=== PATIENT | female | born 1965 | race Caucasian/White ===

== ENCOUNTER 2021-07-15 03:01 | Observation (INO) | payer OTHER, MEDICAID ==
[2021-07-15 04:28] LABS: #Eosinphils 0.1 10x3/uL (0.0-0.5); #Monocytes 0.3 10x3/uL (0.0-1.1); #Neutrophils 2.4 10x3/uL (1.5-8.4); %Basophils 0.8 % (0.0-2.0); %Lymphocytes 20.7 % (18.0-47.0); %Monocytes 7.9 % (0.0-10.0); %Neutrophils 68.3 % (40.0-75.0); Hemoglobin 9.4 g/dL (12.0-15.5); Mean Corpuscular HGB CONC 33.9 g/dL (32.0-36.0); Mean Corpuscular Volume 94.2 fl (81.6-98.3); Mean Platelet Volume 11.3 fl (7.4-10.4); Platelet Count 146 10x3/uL (150-450); RBC Distribution Width 14.4 % (11.5-14.5); Red Blood Cell (RBC) Count 2.94 10x6/uL (3.90-5.03); White Blood Cell (WBC) Count 3.5 10x3/uL (3.5-10.5)
[2021-07-15 04:36] LABS: ALT (SGPT) 8 U/L (8-55); AST (SGOT) 14 U/L (5-34); Albumin 3.9 g/dL (3.5-5.0); Alkaline Phosphatase 178 U/L (40-110); Anion Gap 18 mmol/L (10-20); BUN (Urea Nitrogen) 21 mg/dL (9.8-20.1); Bilirubin, Total 0.8 mg/dL (0.2-1.2); Calc. Creatinine Clearance 0 mL/min (70-130); Calcium 9.5 mg/dL (7.8-10.44); Carbon Dioxide 28 mmol/L (22-29); Chloride 97 mmol/L (98-107); Globulin 2.5 g/dL (2.4-3.5); Glucose 96 mg/dL (70-105); Potassium 4.4 mmol/L (3.5-5.1); Protein, Total 6.4 g/dL (6.0-8.3); Sodium 139 mmol/L (136-145)
[2021-07-15 04:54] LABS: CKMB 0.8 ng/mL (0-6.6)
[2021-07-15] MEDS ORDERED: hydrALAZINE 20 MG/ML VIAL ONE (04:59)
[2021-07-15] MEDS ORDERED: cloNIDine 0.1 MG TAB ONE (06:00)
[2021-07-15] MEDS ORDERED: Nitroglycerin 0.4 MG TAB (25 Tab Bottle) SL PRN (06:05)
[2021-07-15 06:51] VITALS: BMI 34.0
[2021-07-15] MEDS ORDERED: Sevelamer Carbonate 800 MG TAB PO SCH (08:00)
[2021-07-15] MEDS: Carvedilol 12.5 MG TAB PO SCH ×2 (08:26→17:08)
[2021-07-15] MEDS: Apixaban 2.5 MG TAB PO SCH ×2 (08:27→20:10)
[2021-07-15] MEDS: Lisinopril 20 MG TAB PO SCH (08:27)
[2021-07-15] MEDS: Aspirin Chewable 81 MG TAB PO SCH (08:27)
[2021-07-15 08:44] LABS: Cardiac Risk 4.3 (Less than 4.5); Phosphorus 4.2 mg/dL (2.3-4.7)
[2021-07-15 08:52] LABS: Troponin I 0.029 ng/mL (< 0.028)
[2021-07-15 09:43] LABS: Troponin I 0.037 ng/mL (< 0.028)
[2021-07-15] MEDS: Acetaminophen 325 MG TAB PO PRN ×2 (11:47→19:05)
[2021-07-15] MEDS: Sevelamer Carbonate 800 MG TAB PO SCH ×2 (12:17→17:08)
[2021-07-15] MEDS: hydrALAZINE 20 MG/ML VIAL SLOW IVP PRN ×2 (12:18→17:33)
[2021-07-15] MEDS ORDERED: hydrALAZINE 25 MG TAB PO SCH (15:00)
[2021-07-15] MEDS: hydrALAZINE 25 MG TAB PO SCH ×2 (15:25→20:41)
[2021-07-15] MEDS ORDERED: diphenhydrAMINE 25 MG CAP PO PRN (15:45)
[2021-07-15] MEDS ORDERED: Ondansetron ODT 4 MG TAB PO PRN (15:45)
[2021-07-15] MEDS ORDERED: traMADol HCl 50 MG TAB PO PRN (17:26)
[2021-07-15] MEDS ORDERED: Labetalol HCl 100 MG/20 ML VIAL SLOW IVP PRN (17:48)
[2021-07-15 20:02] LABS: SARS-CoV-2 PCR by NAA Not Detected (NotDetected)
[2021-07-15] MEDS: Gabapentin 300 MG CAP PO SCH (20:10)
[2021-07-16] MEDS ORDERED: Heparin 10,000 UNITS/ 10 ML VIAL SLOW IVP PRN (08:25)
[2021-07-16] MEDS ORDERED: NIFEdipine XL 60 MG TAB PO SCH (11:00)
[2021-07-16] MEDS: Lisinopril 20 MG TAB PO SCH (12:24)
[2021-07-16] MEDS: hydrALAZINE 25 MG TAB PO SCH ×3 (12:24→21:25)
[2021-07-16] MEDS: Carvedilol 12.5 MG TAB PO SCH ×2 (12:24→17:22)
[2021-07-16] MEDS: Aspirin Chewable 81 MG TAB PO SCH (12:24)
[2021-07-16] MEDS: Apixaban 2.5 MG TAB PO SCH ×2 (12:25→21:25)
[2021-07-16] MEDS: Sevelamer Carbonate 800 MG TAB PO SCH ×3 (12:25→17:22)
[2021-07-16] MEDS: Gabapentin 300 MG CAP PO SCH (21:24)
[2021-07-17 05:24] LABS: #Eosinphils 0.1 10x3/uL (0.0-0.5); #Monocytes 0.5 10x3/uL (0.0-1.1); #Neutrophils 3.1 10x3/uL (1.5-8.4); %Basophils 0.4 % (0.0-2.0); %Eosinophils 1.8 % (0.0-6.0); %Lymphocytes 28.1 % (18.0-47.0); %Neutrophils 60.3 % (40.0-75.0); Hemoglobin 8.8 g/dL (12.0-15.5); Mean Corpuscular HGB CONC 33.1 g/dL (32.0-36.0); Mean Corpuscular Hemoglobin 31.4 pg (27.0-33.0); Mean Platelet Volume 10.7 fl (7.4-10.4); Platelet Count 155 10x3/uL (150-450); RBC Distribution Width 14.5 % (11.5-14.5); White Blood Cell (WBC) Count 5.1 10x3/uL (3.5-10.5)
[2021-07-17 05:50] LABS: Anion Gap 15 mmol/L (10-20); BUN (Urea Nitrogen) 18 mg/dL (9.8-20.1); Calc. Creatinine Clearance 12 mL/min (70-130); Calcium 9.6 mg/dL (7.8-10.44); Carbon Dioxide 27 mmol/L (22-29); Chloride 95 mmol/L (98-107); Glucose 90 mg/dL (70-105); Potassium 4.4 mmol/L (3.5-5.1); Sodium 133 mmol/L (136-145)
[2021-07-17 08:11] VITALS: TEMP 97.4
[2021-07-17] MEDS: Sevelamer Carbonate 800 MG TAB PO SCH (08:15)
[2021-07-17] MEDS: Lisinopril 20 MG TAB PO SCH (08:15)
[2021-07-17] MEDS: Aspirin Chewable 81 MG TAB PO SCH ×2 (08:15→08:16)
[2021-07-17] MEDS: hydrALAZINE 25 MG TAB PO SCH (08:16)
[2021-07-17] MEDS: Carvedilol 12.5 MG TAB PO SCH (08:16)
[2021-07-17] MEDS: Apixaban 2.5 MG TAB PO SCH (08:16)
[2021-07-17 08:18] VITALS: BP 190/98
[2021-07-17] MEDS ORDERED: NIFEdipine XL 60 MG TAB PO SCH (09:00)
== END 2021-07-17 11:54 | disposition home or self-care (01) ==
LOC: CSHERS 03:01 → CSHTELE 06:40 → INTOOBSV 06:40
PROVIDERS: ADMIT Family Medicine; ATTEND Internal Medicine
DX: I16.0 Hypertensive urgency (principal); R07.9 Chest pain, unspecified; E11.22 Type 2 diabetes mellitus with diabetic chronic kidney disease; I13.0 Hypertensive heart and chronic kidney disease with heart failure and stage 1 through stage 4 chronic kidney disease, or unspecified chronic kidney disease; I50.32 Chronic diastolic (congestive) heart failure; N18.6 End stage renal disease; I25.10 Atherosclerotic heart disease of native coronary artery without angina pectoris; J44.9 Chronic obstructive pulmonary disease, unspecified; Z79.899 Other long term (current) drug therapy; Z95.810 Presence of automatic (implantable) cardiac defibrillator; I69.398 Other sequelae of cerebral infarction; H53.9 Unspecified visual disturbance; Z99.2 Dependence on renal dialysis; I48.0 Paroxysmal atrial fibrillation; E78.5 Hyperlipidemia, unspecified; Z20.822 Contact with and (suspected) exposure to COVID-19
CPT/HCPCS: 71045; 80048; 80053; 80061; 82553; 84100; 84484 ×2; 85025 ×2; 93005; 93306; 96374; 96375; 96376; 99285; G0378 ×4; U0003; U0005; 36415; 90935; 93010; G0257; J0360; J1644; Q0162

== ENCOUNTER 2021-07-29 15:08 | Emergency (ER) | payer OTHER, MEDICAID ==
[2021-07-29 15:47] LABS: #Eosinphils 0.1 10x3/uL (0.0-0.5); #Monocytes 0.5 10x3/uL (0.0-1.1); %Basophils 0.7 % (0.0-2.0); %Eosinophils 1.5 % (0.0-6.0); %Lymphocytes 21.2 % (18.0-47.0); %Monocytes 8.1 % (0.0-10.0); Hemoglobin 9.2 g/dL (12.0-15.5); Mean Corpuscular HGB CONC 33.1 g/dL (32.0-36.0); Mean Corpuscular Hemoglobin 31.5 pg (27.0-33.0); Mean Corpuscular Volume 95.2 fl (81.6-98.3); Mean Platelet Volume 10.6 fl (7.4-10.4); Platelet Count 224 10x3/uL (150-450); RBC Distribution Width 13.5 % (11.5-14.5); Red Blood Cell (RBC) Count 2.92 10x6/uL (3.90-5.03); White Blood Cell (WBC) Count 5.8 10x3/uL (3.5-10.5)
[2021-07-29 16:16] LABS: ALT (SGPT) 8 U/L (8-55); AST (SGOT) 14 U/L (5-34); Alkaline Phosphatase 197 U/L (40-110); Anion Gap 20 mmol/L (10-20); BUN (Urea Nitrogen) 27 mg/dL (9.8-20.1); Bilirubin, Total 0.5 mg/dL (0.2-1.2); Calc. Creatinine Clearance 0 mL/min (70-130); Calcium 8.2 mg/dL (7.8-10.44); Carbon Dioxide 25 mmol/L (22-29); Chloride 98 mmol/L (98-107); Globulin 2.8 g/dL (2.4-3.5); Glucose 97 mg/dL (70-105); Potassium 4.6 mmol/L (3.5-5.1); Protein, Total 6.8 g/dL (6.0-8.3); Sodium 138 mmol/L (136-145)
[2021-07-29 16:39] LABS: CKMB 0.7 ng/mL (0-6.6)
== END 2021-07-29 18:06 | disposition home or self-care (01) ==
LOC: CSHERS 15:08
DX: I13.2 Hypertensive heart and chronic kidney disease with heart failure and with stage 5 chronic kidney disease, or end stage renal disease (principal); E11.22 Type 2 diabetes mellitus with diabetic chronic kidney disease; N18.6 End stage renal disease; I50.9 Heart failure, unspecified; I48.91 Unspecified atrial fibrillation; E78.5 Hyperlipidemia, unspecified; E78.00 Pure hypercholesterolemia, unspecified; Z87.891 Personal history of nicotine dependence; Z99.2 Dependence on renal dialysis
CPT/HCPCS: 71045; 80053; 82553; 84484; 85025; 93005

== ENCOUNTER 2021-08-05 16:16 | Emergency (ER) | payer OTHER, MEDICAID ==
[2021-08-05 17:21] LABS: #Eosinphils 0.3 10x3/uL (0.0-0.5); #Monocytes 0.3 10x3/uL (0.0-1.1); #Neutrophils 2.6 10x3/uL (1.5-8.4); %Basophils 0.7 % (0.0-2.0); %Eosinophils 8.1 % (0.0-6.0); %Lymphocytes 21.6 % (18.0-47.0); %Monocytes 6.4 % (0.0-10.0); %Neutrophils 62.7 % (40.0-75.0); Mean Corpuscular HGB CONC 33.5 g/dL (32.0-36.0); Mean Corpuscular Hemoglobin 31.4 pg (27.0-33.0); Mean Corpuscular Volume 93.7 fl (81.6-98.3); Mean Platelet Volume 10.3 fl (7.4-10.4); Platelet Count 149 10x3/uL (150-450); RBC Distribution Width 13.5 % (11.5-14.5); Red Blood Cell (RBC) Count 2.87 10x6/uL (3.90-5.03); White Blood Cell (WBC) Count 4.2 10x3/uL (3.5-10.5)
[2021-08-05 17:34] LABS: ALT (SGPT) 13 U/L (8-55); AST (SGOT) 19 U/L (5-34); Alkaline Phosphatase 191 U/L (40-110); Anion Gap 20 mmol/L (10-20); BUN (Urea Nitrogen) 45 mg/dL (9.8-20.1); Bilirubin, Total 0.5 mg/dL (0.2-1.2); Calc. Creatinine Clearance 0 mL/min (70-130); Calcium 7.8 mg/dL (7.8-10.44); Carbon Dioxide 26 mmol/L (22-29); Chloride 99 mmol/L (98-107); Globulin 3.1 g/dL (2.4-3.5); Glucose 94 mg/dL (70-105); Protein, Total 7.1 g/dL (6.0-8.3); Sodium 140 mmol/L (136-145)
== END 2021-08-05 17:55 | disposition home or self-care (01) ==
LOC: CSHERS 16:16
DX: R53.81 Other malaise (principal); N18.6 End stage renal disease; Z99.2 Dependence on renal dialysis; Z79.899 Other long term (current) drug therapy; Z79.01 Long term (current) use of anticoagulants; I48.91 Unspecified atrial fibrillation; I50.9 Heart failure, unspecified; E11.9 Type 2 diabetes mellitus without complications; E78.5 Hyperlipidemia, unspecified; E78.00 Pure hypercholesterolemia, unspecified; I11.0 Hypertensive heart disease with heart failure; Z87.891 Personal history of nicotine dependence
CPT/HCPCS: 71045; 80053; 85025

== ENCOUNTER 2022-03-17 14:26 | Inpatient (IN) | payer OTHER ==
[2022-03-17 15:11] LABS: #Eosinphils 0.1 10x3/uL (0.0-0.5); #Monocytes 0.4 10x3/uL (0.0-1.1); #Neutrophils 2.6 10x3/uL (1.5-8.4); %Basophils 0.7 % (0.0-2.0); %Eosinophils 1.7 % (0.0-6.0); %Lymphocytes 23.8 % (18.0-47.0); %Monocytes 8.9 % (0.0-10.0); %Neutrophils 64.7 % (40.0-75.0); Hemoglobin 10.7 g/dL (12.0-15.5); Mean Corpuscular HGB CONC 31.3 g/dL (32.0-36.0); Mean Corpuscular Hemoglobin 28.4 pg (27.0-33.0); Mean Corpuscular Volume 90.7 fl (81.6-98.3); Mean Platelet Volume 11.8 fl (7.4-10.4); Platelet Count 207 10x3/uL (150-450); RBC Distribution Width 15.7 % (11.5-14.5); Red Blood Cell (RBC) Count 3.77 10x6/uL (3.90-5.03)
[2022-03-17 15:26] LABS: ALT (SGPT) 8 U/L (8-55); AST (SGOT) 20 U/L (5-34); Albumin 3.5 g/dL (3.5-5.0); Alkaline Phosphatase 56 U/L (40-110); Anion Gap 17 mmol/L (10-20); BUN (Urea Nitrogen) 20 mg/dL (9.8-20.1); Bilirubin, Total 0.5 mg/dL (0.2-1.2); Calc. Creatinine Clearance 0 mL/min (70-130); Calcium 10.2 mg/dL (7.8-10.44); Carbon Dioxide 28 mmol/L (22-29); Chloride 99 mmol/L (98-107); Estimated GFR 5; Glucose 99 mg/dL (70-105); Lipase 40 U/L (8-78); Potassium 4.5 mmol/L (3.5-5.1); Protein, Total 6.5 g/dL (6.0-8.3); Sodium 139 mmol/L (136-145)
[2022-03-17] MEDS ORDERED: Ondansetron ODT 4 MG TAB PO PRN (17:00)
[2022-03-17] MEDS ORDERED: Senokot S 8.6-50 MG TAB PO PRN (17:00)
[2022-03-17] MEDS ORDERED: Acetaminophen 325 MG TAB PO PRN (17:00)
[2022-03-17] MEDS ORDERED: Ondansetron PF 4 MG/2 ML Vial IVP PRN (17:00)
[2022-03-17] MEDS ORDERED: Ipratropium/Albuterol 3 ML NEB NEB PRN (17:30)
[2022-03-17 20:34] VITALS: BMI 34.9
[2022-03-17] MEDS ORDERED: hydrALAZINE 25 MG TAB PO SCH (21:00)
[2022-03-17] MEDS ORDERED: Carvedilol 12.5 MG TAB PO SCH (21:00)
[2022-03-17] MEDS ORDERED: Lisinopril 20 MG TAB PO SCH (21:00)
[2022-03-17] MEDS: Gabapentin 300 MG CAP PO SCH (21:50)
[2022-03-17] MEDS: Apixaban 2.5 MG TAB PO SCH (22:07)
[2022-03-18 00:11] LABS: SARS-CoV-2 NAA Rapid Test DETECTED (NotDetected)
[2022-03-18 05:32] LABS: #Eosinphils 0.1 10x3/uL (0.0-0.5); #Monocytes 0.3 10x3/uL (0.0-1.1); #Neutrophils 2.6 10x3/uL (1.5-8.4); %Basophils 0.5 % (0.0-2.0); %Eosinophils 1.6 % (0.0-6.0); %Lymphocytes 23.1 % (18.0-47.0); %Monocytes 8.5 % (0.0-10.0); Hemoglobin 10.7 g/dL (12.0-15.5); Mean Corpuscular HGB CONC 31.8 g/dL (32.0-36.0); Mean Corpuscular Hemoglobin 28.8 pg (27.0-33.0); Mean Corpuscular Volume 90.8 fl (81.6-98.3); Mean Platelet Volume 11.5 fl (7.4-10.4); Platelet Count 196 10x3/uL (150-450); RBC Distribution Width 15.9 % (11.5-14.5); Red Blood Cell (RBC) Count 3.71 10x6/uL (3.90-5.03); White Blood Cell (WBC) Count 3.9 10x3/uL (3.5-10.5)
[2022-03-18 05:40] LABS: Anion Gap 16 mmol/L (10-20); BUN (Urea Nitrogen) 23 mg/dL (9.8-20.1); Calc. Creatinine Clearance 10 mL/min (70-130); Calcium 9.7 mg/dL (7.8-10.44); Carbon Dioxide 26 mmol/L (22-29); Chloride 101 mmol/L (98-107); Estimated GFR 5; Glucose 90 mg/dL (70-105); Potassium 4.3 mmol/L (3.5-5.1); Sodium 139 mmol/L (136-145)
[2022-03-18] MEDS ORDERED: Albuterol 200 PUFF (6.7GM INHALER) INH PRN (07:34)
[2022-03-18] MEDS ORDERED: Lidocaine 1% PF 5 ML VIAL ONE (08:52)
[2022-03-18] MEDS ORDERED: Sodium Bicarbonate 2.5 MEQ/5 ML VIAL ONE (08:52)
[2022-03-18] MEDS ORDERED: NIFEdipine XL 60 MG TAB PO SCH (09:00)
[2022-03-18] MEDS: Sevelamer Carbonate 800 MG TAB PO SCH ×3 (09:40→22:10)
[2022-03-18] MEDS: Carvedilol 12.5 MG TAB PO SCH ×2 (09:41→22:10)
[2022-03-18] MEDS: Aspirin 81 mg Enteric Coated Tablet PO SCH (09:41)
[2022-03-18] MEDS: Ascorbic Acid 500 mg Chewable Tablet PO SCH (09:41)
[2022-03-18] MEDS: Apixaban 2.5 MG TAB PO SCH ×2 (09:41→22:09)
[2022-03-18] MEDS: NIFEdipine XL 60 MG TAB PO SCH (09:41)
[2022-03-18] MEDS: Zinc Sulfate 220 MG CAP PO SCH (09:42)
[2022-03-18] MEDS: hydrALAZINE 25 MG TAB PO SCH ×3 (09:44→22:10)
[2022-03-18 11:58] LABS: BF Color Yellow; Body Fluid Source Peritoneal Fluid; Clarity Hazy (Clear); Tube # EDTA
[2022-03-18 12:56] LABS: BF Segmented Neutrophils 26 %; Cell Count Non Hematic 57 %; Lymphocytes 17 %
[2022-03-18 14:43] LABS: Fluid, Amylase 15 U/L (Not Available); Fluid, Glucose 93 mg/dL (Not Available)
[2022-03-18 15:33] LABS: HBSAg Index 0.18 S/CO (0-0.99); Hep B Surf Ag Non-Reactive S/CO (NonReactive)
[2022-03-18] MEDS ORDERED: Heparin 10,000 UNITS/ 10 ML VIAL SLOW IVP PRN (17:43)
[2022-03-18] MEDS: Gabapentin 300 MG CAP PO SCH (22:09)
[2022-03-18] MEDS: Lisinopril 20 MG TAB PO SCH (22:11)
[2022-03-19 04:02] LABS: #Eosinphils 0.1 10x3/uL (0.0-0.5); #Monocytes 0.3 10x3/uL (0.0-1.1); #Neutrophils 1.7 10x3/uL (1.5-8.4); %Basophils 0.7 % (0.0-2.0); %Lymphocytes 30.9 % (18.0-47.0); %Monocytes 8.9 % (0.0-10.0); %Neutrophils 57.2 % (40.0-75.0); Hemoglobin 10.1 g/dL (12.0-15.5); Mean Corpuscular HGB CONC 31.1 g/dL (32.0-36.0); Mean Corpuscular Hemoglobin 28.5 pg (27.0-33.0); Mean Corpuscular Volume 91.8 fl (81.6-98.3); Platelet Count 161 10x3/uL (150-450); RBC Distribution Width 15.9 % (11.5-14.5); Red Blood Cell (RBC) Count 3.54 10x6/uL (3.90-5.03)
[2022-03-19 04:18] LABS: ALT (SGPT) Less than 6 U/L (8-55); AST (SGOT) 12 U/L (5-34); Alkaline Phosphatase 48 U/L (40-110); Anion Gap 10 mmol/L (10-20); BUN (Urea Nitrogen) 11 mg/dL (9.8-20.1); Bilirubin, Total 0.4 mg/dL (0.2-1.2); Calc. Creatinine Clearance 15 mL/min (70-130); Calcium 9.3 mg/dL (7.8-10.44); Carbon Dioxide 29 mmol/L (22-29); Chloride 99 mmol/L (98-107); Estimated GFR 9; Globulin 2.5 g/dL (2.4-3.5); Glucose 87 mg/dL (70-105); Potassium 4.2 mmol/L (3.5-5.1); Protein, Total 5.5 g/dL (6.0-8.3); Sodium 134 mmol/L (136-145)
[2022-03-19] MEDS ORDERED: Loperamide HCl 2 MG CAP PO PRN (08:34)
[2022-03-19] MEDS: Sevelamer Carbonate 800 MG TAB PO SCH ×3 (09:35→17:48)
[2022-03-19] MEDS: Carvedilol 12.5 MG TAB PO SCH ×2 (10:10→21:33)
[2022-03-19] MEDS: Ascorbic Acid 500 mg Chewable Tablet PO SCH (10:10)
[2022-03-19] MEDS: Aspirin 81 mg Enteric Coated Tablet PO SCH (10:10)
[2022-03-19] MEDS: Apixaban 2.5 MG TAB PO SCH ×2 (10:10→21:33)
[2022-03-19] MEDS: hydrALAZINE 25 MG TAB PO SCH ×3 (10:10→21:33)
[2022-03-19] MEDS: NIFEdipine XL 60 MG TAB PO SCH (10:11)
[2022-03-19] MEDS: Zinc Sulfate 220 MG CAP PO SCH (10:11)
[2022-03-19] MEDS: Benzonatate 100 MG CAP PO PRN (16:01)
[2022-03-19] MEDS: Gabapentin 300 MG CAP PO SCH (21:33)
[2022-03-19] MEDS: Lisinopril 20 MG TAB PO SCH (21:34)
[2022-03-20] MEDS: Zinc Sulfate 220 MG CAP PO SCH (08:31)
[2022-03-20] MEDS: Sevelamer Carbonate 800 MG TAB PO SCH ×3 (08:31→17:25)
[2022-03-20] MEDS: Ascorbic Acid 500 mg Chewable Tablet PO SCH (08:31)
[2022-03-20] MEDS: Apixaban 2.5 MG TAB PO SCH ×2 (08:31→20:41)
[2022-03-20] MEDS: NIFEdipine XL 60 MG TAB PO SCH (08:31)
[2022-03-20] MEDS: Carvedilol 12.5 MG TAB PO SCH ×2 (08:31→20:41)
[2022-03-20] MEDS: Aspirin 81 mg Enteric Coated Tablet PO SCH (08:32)
[2022-03-20] MEDS: hydrALAZINE 25 MG TAB PO SCH ×3 (08:32→14:44)
[2022-03-20 11:28] LABS: Prothrombin Time 11.2 sec (9.5-12.1)
[2022-03-20 15:41] LABS: Hep B Core Total Ab Non-Reactive (NonReactive); Hep B Core Total Index 0.13 S/CO (0-0.79)
[2022-03-20 16:11] LABS: Hep B Surf AB Reactive (NonReactive)
[2022-03-20 16:12] LABS: HBSAB Concentration 25.21 mIU/mL
[2022-03-20] MEDS: Gabapentin 300 MG CAP PO SCH (20:40)
[2022-03-21] MEDS: hydrALAZINE 25 MG TAB PO SCH ×3 (04:52→16:03)
[2022-03-21] MEDS: Lisinopril 20 MG TAB PO SCH (04:53)
[2022-03-21] MEDS: Apixaban 2.5 MG TAB PO SCH ×2 (09:00→21:15)
[2022-03-21] MEDS: Ascorbic Acid 500 mg Chewable Tablet PO SCH (09:00)
[2022-03-21] MEDS: Zinc Sulfate 220 MG CAP PO SCH (09:00)
[2022-03-21] MEDS: Aspirin 81 mg Enteric Coated Tablet PO SCH (09:00)
[2022-03-21] MEDS: NIFEdipine XL 60 MG TAB PO SCH (09:00)
[2022-03-21] MEDS: Carvedilol 12.5 MG TAB PO SCH ×2 (09:00→21:16)
[2022-03-21] MEDS: Sevelamer Carbonate 800 MG TAB PO SCH ×3 (09:00→16:04)
[2022-03-21] MEDS: Gabapentin 300 MG CAP PO SCH (21:15)
[2022-03-22 04:01] LABS: #Monocytes 0.3 10x3/uL (0.0-1.1); #Neutrophils 2.6 10x3/uL (1.5-8.4); %Basophils 0.7 % (0.0-2.0); %Lymphocytes 27.3 % (18.0-47.0); %Monocytes 7.1 % (0.0-10.0); %Neutrophils 63.7 % (40.0-75.0); Hemoglobin 10.7 g/dL (12.0-15.5); Mean Corpuscular HGB CONC 31.6 g/dL (32.0-36.0); Mean Corpuscular Hemoglobin 28.5 pg (27.0-33.0); Mean Corpuscular Volume 90.2 fl (81.6-98.3); Platelet Count 159 10x3/uL (150-450); RBC Distribution Width 15.1 % (11.5-14.5); Red Blood Cell (RBC) Count 3.76 10x6/uL (3.90-5.03); White Blood Cell (WBC) Count 4.1 10x3/uL (3.5-10.5)
[2022-03-22 04:03] LABS: Anion Gap 16 mmol/L (10-20); BUN (Urea Nitrogen) 17 mg/dL (9.8-20.1); Calc. Creatinine Clearance 14 mL/min (70-130); Calcium 9.7 mg/dL (7.8-10.44); Carbon Dioxide 25 mmol/L (22-29); Chloride 98 mmol/L (98-107); Estimated GFR 8; Glucose 78 mg/dL (70-105); Potassium 4.9 mmol/L (3.5-5.1); Sodium 134 mmol/L (136-145)
[2022-03-22] MEDS: hydrALAZINE 25 MG TAB PO SCH ×4 (05:33→22:12)
[2022-03-22] MEDS: Lisinopril 20 MG TAB PO SCH ×2 (05:34→22:12)
[2022-03-22] MEDS: Apixaban 2.5 MG TAB PO SCH ×2 (08:32→21:49)
[2022-03-22] MEDS: NIFEdipine XL 60 MG TAB PO SCH (08:32)
[2022-03-22] MEDS: Carvedilol 12.5 MG TAB PO SCH ×2 (08:32→21:50)
[2022-03-22] MEDS: Aspirin 81 mg Enteric Coated Tablet PO SCH (08:32)
[2022-03-22] MEDS: Sevelamer Carbonate 800 MG TAB PO SCH ×3 (08:32→17:43)
[2022-03-22] MEDS: Ascorbic Acid 500 mg Chewable Tablet PO SCH (08:33)
[2022-03-22] MEDS: Zinc Sulfate 220 MG CAP PO SCH (08:33)
[2022-03-22] MEDS: cefTRIAXone\\ROCEPHIN 1 GM in Sodium Chloride 0.9% 100 ML IVPB SCH (17:42)
[2022-03-22] MEDS: Gabapentin 300 MG CAP PO SCH (21:49)
[2022-03-22] MEDS: Benzonatate 100 MG CAP PO PRN (22:15)
[2022-03-23 03:41] LABS: #Eosinphils 0.1 10x3/uL (0.0-0.5); #Monocytes 0.3 10x3/uL (0.0-1.1); #Neutrophils 2.1 10x3/uL (1.5-8.4); %Basophils 0.8 % (0.0-2.0); %Eosinophils 1.7 % (0.0-6.0); %Lymphocytes 30.1 % (18.0-47.0); %Monocytes 8.1 % (0.0-10.0); Hemoglobin 10.1 g/dL (12.0-15.5); Mean Corpuscular HGB CONC 31.8 g/dL (32.0-36.0); Mean Corpuscular Hemoglobin 28.8 pg (27.0-33.0); Mean Corpuscular Volume 90.6 fl (81.6-98.3); Mean Platelet Volume 11.7 fl (7.4-10.4); Platelet Count 120 10x3/uL (150-450); RBC Distribution Width 14.9 % (11.5-14.5); Red Blood Cell (RBC) Count 3.51 10x6/uL (3.90-5.03); White Blood Cell (WBC) Count 3.6 10x3/uL (3.5-10.5)
[2022-03-23 03:58] LABS: Anion Gap 14 mmol/L (10-20); BUN (Urea Nitrogen) 26 mg/dL (9.8-20.1); Calc. Creatinine Clearance 11 mL/min (70-130); Calcium 9.6 mg/dL (7.8-10.44); Carbon Dioxide 25 mmol/L (22-29); Chloride 97 mmol/L (98-107); Estimated GFR 6; Glucose 82 mg/dL (70-105); Potassium 5.8 mmol/L (3.5-5.1); Sodium 130 mmol/L (136-145)
[2022-03-23] MEDS: Sevelamer Carbonate 800 MG TAB PO SCH ×3 (10:01→19:04)
[2022-03-23] MEDS: hydrALAZINE 25 MG TAB PO SCH ×3 (10:02→20:19)
[2022-03-23] MEDS: Zinc Sulfate 220 MG CAP PO SCH (10:03)
[2022-03-23] MEDS: NIFEdipine XL 60 MG TAB PO SCH (10:03)
[2022-03-23] MEDS: Ascorbic Acid 500 mg Chewable Tablet PO SCH (10:03)
[2022-03-23] MEDS: Carvedilol 12.5 MG TAB PO SCH ×2 (10:03→20:03)
[2022-03-23] MEDS: Aspirin 81 mg Enteric Coated Tablet PO SCH (10:03)
[2022-03-23] MEDS: Apixaban 2.5 MG TAB PO SCH ×2 (10:03→20:03)
[2022-03-23] MEDS: cefTRIAXone\\ROCEPHIN 1 GM in Sodium Chloride 0.9% 100 ML IVPB SCH (19:09)
[2022-03-23] MEDS: Gabapentin 300 MG CAP PO SCH (20:02)
[2022-03-23] MEDS: Lisinopril 20 MG TAB PO SCH (20:03)
[2022-03-23] MEDS: Benzonatate 100 MG CAP PO PRN (20:05)
[2022-03-24] MEDS: Sevelamer Carbonate 800 MG TAB PO SCH ×3 (08:42→17:46)
[2022-03-24] MEDS: Ascorbic Acid 500 mg Chewable Tablet PO SCH (08:43)
[2022-03-24] MEDS: Zinc Sulfate 220 MG CAP PO SCH (08:43)
[2022-03-24] MEDS: Aspirin 81 mg Enteric Coated Tablet PO SCH (08:43)
[2022-03-24] MEDS: Carvedilol 12.5 MG TAB PO SCH ×2 (08:43→21:06)
[2022-03-24] MEDS: Apixaban 2.5 MG TAB PO SCH ×2 (08:43→21:07)
[2022-03-24] MEDS: NIFEdipine XL 60 MG TAB PO SCH (08:43)
[2022-03-24] MEDS: hydrALAZINE 25 MG TAB PO SCH ×3 (08:43→21:08)
[2022-03-24 14:06] LABS: SARS-CoV-2 NAA Rapid Test DETECTED (NotDetected)
[2022-03-24 14:37] LABS: Anion Gap 13 mmol/L (10-20); BUN (Urea Nitrogen) 22 mg/dL (9.8-20.1); Calc. Creatinine Clearance 13 mL/min (70-130); Calcium 10.4 mg/dL (7.8-10.44); Carbon Dioxide 28 mmol/L (22-29); Chloride 98 mmol/L (98-107); Estimated GFR 8; Glucose 100 mg/dL (70-105); Potassium 5.3 mmol/L (3.5-5.1); Sodium 134 mmol/L (136-145)
[2022-03-24] MEDS: cefTRIAXone\\ROCEPHIN 1 GM in Sodium Chloride 0.9% 100 ML IVPB SCH (16:04)
[2022-03-24] MEDS: Gabapentin 300 MG CAP PO SCH (21:07)
[2022-03-24] MEDS: Lisinopril 20 MG TAB PO SCH (21:07)
[2022-03-24] MEDS: Benzonatate 100 MG CAP PO PRN (21:07)
[2022-03-25] MEDS ORDERED: Loperamide HCl 2 MG CAP PO SCH (01:15)
[2022-03-25 08:06] LABS: SARS-CoV-2 NAA Rapid Test DETECTED (NotDetected)
[2022-03-25] MEDS: NIFEdipine XL 60 MG TAB PO SCH (08:40)
[2022-03-25] MEDS: Sevelamer Carbonate 800 MG TAB PO SCH ×2 (08:40→12:11)
[2022-03-25] MEDS: Apixaban 2.5 MG TAB PO SCH (08:40)
[2022-03-25] MEDS: Aspirin 81 mg Enteric Coated Tablet PO SCH (08:40)
[2022-03-25] MEDS: Carvedilol 12.5 MG TAB PO SCH (08:41)
[2022-03-25] MEDS: hydrALAZINE 25 MG TAB PO SCH ×2 (08:41→15:07)
[2022-03-25] MEDS: Ascorbic Acid 500 mg Chewable Tablet PO SCH (08:41)
[2022-03-25] MEDS: Zinc Sulfate 220 MG CAP PO SCH (08:41)
[2022-03-25 14:16] VITALS: BP 111/45; TEMP 97.8
== END 2022-03-25 18:40 | disposition home or self-care (01) | DRG 947 ==
LOC: CSHERS 14:26 → CSHTELE 16:51 → OBSVTOIN 03-19 16:20
PROVIDERS: ADMIT Student in an Organized Health Care Education/Training Program; ATTEND Hospitalist
PROC: 8E0ZXY6 Isolation (ICD-10-PCS; principal; 2022-03-18)
PROC: 0W9G3ZZ Drainage of Peritoneal Cavity, Percutaneous Approach (ICD-10-PCS; 2022-03-18)
PROC: 5A1D70Z Performance of Urinary Filtration, Intermittent, Less than 6 Hours Per Day (ICD-10-PCS; 2022-03-18)
DX: R18.8 Other ascites (principal); N18.6 End stage renal disease; U07.1 COVID-19; I50.32 Chronic diastolic (congestive) heart failure; I48.20 Chronic atrial fibrillation, unspecified; I13.2 Hypertensive heart and chronic kidney disease with heart failure and with stage 5 chronic kidney disease, or end stage renal disease; I25.10 Atherosclerotic heart disease of native coronary artery without angina pectoris; D63.1 Anemia in chronic kidney disease; E78.5 Hyperlipidemia, unspecified; E11.22 Type 2 diabetes mellitus with diabetic chronic kidney disease; E66.9 Obesity, unspecified; Z68.33 Body mass index [BMI] 33.0-33.9, adult; Z99.2 Dependence on renal dialysis; Z79.01 Long term (current) use of anticoagulants; Z86.73 Personal history of transient ischemic attack (TIA), and cerebral infarction without residual deficits; Z88.8 Allergy status to other drugs, medicaments and biological substances; Z91.041 Radiographic dye allergy status; Z79.899 Other long term (current) drug therapy; Z90.49 Acquired absence of other specified parts of digestive tract; I25.2 Old myocardial infarction; Z90.710 Acquired absence of both cervix and uterus; Z95.810 Presence of automatic (implantable) cardiac defibrillator
CPT/HCPCS: 36415; 36416; 49083; 71045; 74176; 80048; 80053; 82042; 82150; 82945; 83615; 83690; 84155; 85025; 85610; 86704; 86706; 87070; 87205; 87340; 88112; 88305; 89051; 90935; 94760; G0257; G0378; J0696; J1644; J3490; U0002

== ENCOUNTER 2022-08-22 13:12 | Observation (INO) | payer OTHER ==
[2022-08-22 14:00] LABS: #Eosinphils 0.1 10x3/uL (0.0-0.5); #Monocytes 0.4 10x3/uL (0.0-1.1); #Neutrophils 2.7 10x3/uL (1.5-8.4); %Basophils 0.5 % (0.0-2.0); %Eosinophils 2.8 % (0.0-6.0); %Lymphocytes 17.7 % (18.0-47.0); %Monocytes 10.1 % (0.0-10.0); %Neutrophils 68.6 % (40.0-75.0); Hemoglobin 10.4 g/dL (12.0-15.5); Mean Corpuscular HGB CONC 31.4 g/dL (32.0-36.0); Mean Corpuscular Hemoglobin 27.2 pg (27.0-33.0); Mean Corpuscular Volume 86.6 fl (81.6-98.3); Mean Platelet Volume 11.4 fl (7.4-10.4); Platelet Count 179 10x3/uL (150-450); RBC Distribution Width 13.9 % (11.5-14.5); Red Blood Cell (RBC) Count 3.82 10x6/uL (3.90-5.03)
[2022-08-22] MEDS ORDERED: Lidocaine 2% Viscous Solution 10 ML, Aluminum & Magnesium Hydroxide 30 ML SSW SCH (14:00)
[2022-08-22] MEDS ORDERED: Nitroglycerin 2% Ointment 1 INCH/1 GM Packet ONE (14:05)
[2022-08-22 14:13] LABS: ALT (SGPT) 9 U/L (8-55); AST (SGOT) 17 U/L (5-34); Albumin 3.9 g/dL (3.5-5.0); Alkaline Phosphatase 59 U/L (40-110); Anion Gap 13 mmol/L (10-20); BUN (Urea Nitrogen) 19 mg/dL (9.8-20.1); Bilirubin, Total 0.6 mg/dL (0.2-1.2); Calc. Creatinine Clearance 0 mL/min (70-130); Calcium 10.2 mg/dL (7.8-10.44); Carbon Dioxide 28 mmol/L (22-29); Chloride 98 mmol/L (98-107); Estimated GFR 9; Globulin 2.9 g/dL (2.4-3.5); Glucose 116 mg/dL (70-105); Lipase 24 U/L (8-78); Potassium 3.5 mmol/L (3.5-5.1); Protein, Total 6.8 g/dL (6.0-8.3); Sodium 135 mmol/L (136-145)
[2022-08-22 14:37] LABS: CKMB 0.7 ng/mL (0-6.6)
[2022-08-22] MEDS ORDERED: Ondansetron PF 4 MG/2 ML Vial IVP PRN (15:53)
[2022-08-22] MEDS ORDERED: Calcium Carbonate 500 MG ChewTAB PO PRN (15:53)
[2022-08-22] MEDS ORDERED: Acetaminophen 325 MG TAB PO PRN (15:53)
[2022-08-22] MEDS ORDERED: Senokot S 8.6-50 MG TAB PO PRN (15:53)
[2022-08-22 16:26] VITALS: BMI 29.1
[2022-08-22] MEDS ORDERED: Sevelamer Carbonate 800 MG TAB PO SCH (17:00)
[2022-08-22 18:10] LABS: Troponin I 0.038 ng/mL (< 0.028)
[2022-08-22 20:35] LABS: Troponin I 0.033 ng/mL (< 0.028)
[2022-08-22] MEDS ORDERED: Gabapentin 300 MG CAP PO SCH (21:00)
[2022-08-22] MEDS: Carvedilol 12.5 MG TAB PO SCH (21:28)
[2022-08-22] MEDS: Apixaban 2.5 MG TAB PO SCH (21:28)
[2022-08-22] MEDS: hydrALAZINE 25 MG TAB PO SCH (21:29)
[2022-08-23 04:29] LABS: #Eosinphils 0.1 10x3/uL (0.0-0.5); #Monocytes 0.4 10x3/uL (0.0-1.1); #Neutrophils 2.3 10x3/uL (1.5-8.4); %Basophils 0.8 % (0.0-2.0); %Eosinophils 2.6 % (0.0-6.0); %Lymphocytes 28.6 % (18.0-47.0); %Monocytes 8.9 % (0.0-10.0); %Neutrophils 58.8 % (40.0-75.0); Hemoglobin 9.9 g/dL (12.0-15.5); Mean Corpuscular HGB CONC 31.1 g/dL (32.0-36.0); Mean Corpuscular Hemoglobin 27.3 pg (27.0-33.0); Mean Corpuscular Volume 87.6 fl (81.6-98.3); Mean Platelet Volume 12.3 fl (7.4-10.4); Platelet Count 148 10x3/uL (150-450); RBC Distribution Width 13.9 % (11.5-14.5); Red Blood Cell (RBC) Count 3.63 10x6/uL (3.90-5.03); White Blood Cell (WBC) Count 3.9 10x3/uL (3.5-10.5)
[2022-08-23 04:39] LABS: ALT (SGPT) 8 U/L (8-55); AST (SGOT) 15 U/L (5-34); Albumin 3.7 g/dL (3.5-5.0); Alkaline Phosphatase 57 U/L (40-110); Anion Gap 17 mmol/L (10-20); BUN (Urea Nitrogen) 25 mg/dL (9.8-20.1); Bilirubin, Total 0.5 mg/dL (0.2-1.2); Calc. Creatinine Clearance 11 mL/min (70-130); Calcium 10.7 mg/dL (7.8-10.44); Carbon Dioxide 25 mmol/L (22-29); Cardiac Risk 4.7 (Less than 4.5); Chloride 98 mmol/L (98-107); Cholesterol 127 mg/dl (< 200 Desired); Estimated GFR 7; Globulin 2.8 g/dL (2.4-3.5); Glucose 97 mg/dL (70-105); HDL Cholesterol 27 mg/dL (>60 Neg Risk); LDL Cholesterol, Calculated 72 mg/dL; Protein, Total 6.5 g/dL (6.0-8.3); Sodium 136 mmol/L (136-145); Triglycerides 138 mg/dL (Less than 150)
[2022-08-23] MEDS: Apixaban 2.5 MG TAB PO SCH (08:56)
[2022-08-23] MEDS: hydrALAZINE 25 MG TAB PO SCH (08:57)
[2022-08-23] MEDS: Carvedilol 12.5 MG TAB PO SCH (08:58)
[2022-08-23] MEDS ORDERED: NIFEdipine XL 30 MG TAB PO SCH (09:00)
[2022-08-23] MEDS ORDERED: Lisinopril 20 MG TAB PO SCH (09:00)
[2022-08-23] MEDS ORDERED: Aspirin 81 mg Enteric Coated Tablet PO SCH (09:00)
[2022-08-23] MEDS: NIFEdipine XL 30 MG TAB PO PRN ×2 (11:36→15:47)
[2022-08-23 13:36] LABS: Hemoglobin A1c 4.4 % (4.0-6.0)
[2022-08-23 15:48] VITALS: BP 183/88
[2022-08-23 16:41] VITALS: TEMP 98.2
[2022-08-23] MEDS ORDERED: Atorvastatin Calcium 20 MG TAB PO SCH (21:00)
== END 2022-08-23 17:00 | disposition home or self-care (01) ==
LOC: SUATTDRO 13:12 → CSHERS 13:12 → CSHTELE 16:09
PROVIDERS: ADMIT Internal Medicine; ATTEND Internal Medicine
DX: R07.9 Chest pain, unspecified (principal); I48.91 Unspecified atrial fibrillation; I25.10 Atherosclerotic heart disease of native coronary artery without angina pectoris; E11.22 Type 2 diabetes mellitus with diabetic chronic kidney disease; I13.2 Hypertensive heart and chronic kidney disease with heart failure and with stage 5 chronic kidney disease, or end stage renal disease; I50.9 Heart failure, unspecified; N18.6 End stage renal disease; E78.5 Hyperlipidemia, unspecified; Z86.73 Personal history of transient ischemic attack (TIA), and cerebral infarction without residual deficits; Z95.0 Presence of cardiac pacemaker; Z88.0 Allergy status to penicillin; Z91.041 Radiographic dye allergy status; Z79.01 Long term (current) use of anticoagulants; Z79.82 Long term (current) use of aspirin; Z79.899 Other long term (current) drug therapy; Z99.2 Dependence on renal dialysis
CPT/HCPCS: 71046; 80053 ×2; 80061; 82553; 83036; 83690; 84484 ×2; 85025 ×2; 93005; 94760 ×3; 99285; G0378 ×3; 36415

== ENCOUNTER 2022-09-21 00:24 | Emergency (ER) | payer OTHER ==
[2022-09-21] MEDS ORDERED: cloNIDine 0.1 MG TAB ONE (00:41)
== END 2022-09-21 01:25 | disposition home or self-care (01) ==
LOC: CSHERS 00:24
DX: I10 Essential (primary) hypertension (principal); I48.91 Unspecified atrial fibrillation; E11.9 Type 2 diabetes mellitus without complications; E78.00 Pure hypercholesterolemia, unspecified; Z79.82 Long term (current) use of aspirin
CPT/HCPCS: 99283

== ENCOUNTER 2023-11-30 08:26 | Outpatient (CLI) | payer OTHER | END 2023-11-30 08:27 | disposition home or self-care (01) | LOC: CSHULT 08:26 | PROVIDERS: ATTEND Physician Assistant Medical | DX: K22.70 Barrett's esophagus without dysplasia (principal); R18.8 Other ascites; K21.9 Gastro-esophageal reflux disease without esophagitis; R16.1 Splenomegaly, not elsewhere classified | CPT/HCPCS: 76700 ==

== ENCOUNTER 2024-04-22 03:51 | Emergency (ER) | payer OTHER ==
[2024-04-22] MEDS ORDERED: Nitroglycerin 50 MG/250 ML BOT 250 ML ONE (03:57)
[2024-04-22 04:20] LABS: #Basophils 0.15 10x3/uL (0.0-0.2); #Eosinophils 0.32 10x3/uL (0.0-0.5); #Monocytes 1.01 10x3/uL (0.0-1.1); #Neutrophils 10.54 10x3/uL (1.5-8.4); %Basophils 0.8 % (0.0-2.0); %Eosinophils 1.6 % (0.0-6.0); %Lymphocytes 38.3 % (18.0-47.0); %Monocytes 5.2 % (0.0-10.0); %Neutrophils 53.7 % (40.0-75.0); Hematocrit 40.3 % (34.9-44.5); Hemoglobin 12.9 g/dL (12.0-15.5); Mean Corpuscular Hemoglobin 29.8 pg (27.0-33.0); Mean Corpuscular Volume 93.1 fL (81.6-98.3); Mean Platelet Volume 11.9 fL (7.4-10.4); Platelet Count 315 10x3/uL (150-450); RBC Distribution Width 15.2 % (11.5-14.5); Red Blood Cell (RBC) Count 4.33 10x6/uL (3.90-5.03); White Blood Cell (WBC) Count 19.58 10x3/uL (3.5-10.5)
[2024-04-22 04:34] LABS: ALT (SGPT) 9 U/L (Less than 34); AST (SGOT) 18 U/L (11-34); Albumin 3.9 g/dL (3.1-4.5); Alkaline Phosphatase 79 U/L (40-110); Anion Gap 21 mmol/L (10-20); BUN (Urea Nitrogen) 42 mg/dL (9.8-20.1); Bilirubin, Total 0.6 mg/dL (0.3-1.2); Calc. Creatinine Clearance 0 mL/min (70-130); Calcium 10.8 mg/dL (7.8-10.44); Carbon Dioxide 24 mmol/L (22-29); Chloride 94 mmol/L (98-107); Estimated GFR 4; Globulin 3.5 g/dL (2.4-3.5); Glucose 186 mg/dL (70-105); Protein, Total 7.4 g/dL (6.0-8.3); Sodium 133 mmol/L (136-145)
[2024-04-22 04:36] LABS: Critical Call Chemistry NUR.AEB@0436; Potassium 6.1 mmol/L (3.5-5.1)
[2024-04-22 04:41] LABS: Troponin I 0.073 ng/mL (< 0.028)
== END 2024-04-22 05:49 | disposition short-term general hospital (02) ==
LOC: CSHERS 03:51
DX: J81.0 Acute pulmonary edema (principal); E87.5 Hyperkalemia; I16.9 Hypertensive crisis, unspecified; I25.2 Old myocardial infarction; I13.2 Hypertensive heart and chronic kidney disease with heart failure and with stage 5 chronic kidney disease, or end stage renal disease; I50.9 Heart failure, unspecified; I25.10 Atherosclerotic heart disease of native coronary artery without angina pectoris; N18.6 End stage renal disease; Z79.82 Long term (current) use of aspirin; Z79.899 Other long term (current) drug therapy; Z95.0 Presence of cardiac pacemaker; Z87.891 Personal history of nicotine dependence; Z99.2 Dependence on renal dialysis
CPT/HCPCS: 71045; 80053; 84484; 85025; 87428; 93005; 94660; 96365